=== PATIENT | male | born 1990 | race Two or more races ===

== ENCOUNTER 2022-03-13 07:42 | Emergency (ER) | payer OTHER ==
[2022-03-13 08:01] VITALS: BP 152/59; PULSE 73; RESP 18; TEMP 97.9; BMI 25.8
[2022-03-13] MEDS ORDERED: oxyCODONE HCL 5 MG TABLET PO ONE ×2 (08:36→09:17)
[2022-03-13] MEDS ORDERED: KETOROLAC TROMETHAMINE 60 MG/2 ML VIAL IM ONE (08:37)
[2022-03-13] MEDS ORDERED: oxyCODONE HCL 5 MG TABLET ONE ×2 (08:43→09:18)
[2022-03-13] MEDS ORDERED: KETOROLAC TROMETHAMINE 60 MG/2 ML VIAL ONE (08:43)
== END 2022-03-13 11:45 | disposition home or self-care (01) ==
LOC: JER 07:42
PROC: 3E0233Z Introduction of Anti-inflammatory into Muscle, Percutaneous Approach (ICD-10-PCS; principal; 2022-03-13)
DX: M79.605 Pain in left leg (principal)
CPT/HCPCS: 93971-TC; 99284-25